=== PATIENT | female | born 1965 | race Caucasian/White ===

== ENCOUNTER 2016-08-24 12:03 | Emergency (ER) | payer OTHER ==
[~2016-08-24] VITALS: Ht 165.1 cm; Wt 123.0 kg
[2016-08-24 12:10] VITALS: TEMP 36.7; Ht 165.1 cm; Wt 123.0 kg
[2016-08-24] MEDS ORDERED: TRAM-10 PO (12:17)
[2016-08-24] MEDS ORDERED: SODIUM CHLORIDE 0.9% 500ML 500 ML IV STA (12:49)
[2016-08-24] MEDS ORDERED: MoRPHine SULFATE 10 MG/ML CARP/VIAL IV STA (12:49)
[2016-08-24] MEDS ORDERED: LORAZEPAM 2 MG/ML 1 ML VIAL IV STA (12:49)
[2016-08-24] MEDS ORDERED: ONDANSETRON INJ 2 MG/ML 2 ML VIAL IV STA (12:49)
[2016-08-24 13:31] LABS: COMPLETE YES; EOS % 0.2 %; HEMATOCRIT 42.1 % (37-47); LYMPH % 49.6 %; LYMPH ABS # 2.64 K/uL (1.2-3.4); MEAN CELL VOLUME 89.4 fL (80-100); MEAN CORPUSCULAR HEMOGLOBIN 30.1 pg (25-34); MEAN CORPUSCULAR HGB CONC 33.7 g/dl (32-36); MEAN PLATELET VOLUME 12.4 fL (7.4-10.4); MONO % 9.6 %; NEUT % 40.6 %; PLATELET COUNT 184 K/uL (130-400); RED BLOOD COUNT 4.71 M/uL (4.2-5.4); WHITE BLOOD COUNT 5.32 K/uL (4.8-10.8)
[2016-08-24 13:44] LABS: BUN/CREATININE RATIO 15.2 (10-20); CALCIUM 8.8 mg/dl (8.5-10.1); CREATININE 0.77 mg/dl (0.60-1.20); POTASSIUM 4.4 mmol/L (3.5-5.1)
--- NOTE | 2016-08-24 13:59 | DIAGNOSTIC IMAGING REPORT ---
RIGHT TIBIA AND FIBULA 2 VIEWS CLINICAL HISTORY: Right leg injury. FINDINGS: AP and lateral views of the right tibia and fibula are obtained. No prior studies are available for comparison at the time of dictation. The skeletal structures are well mineralized. No fracture is seen. The knee and ankle joints are grossly maintained. Soft tissue edema is present in the calf. IMPRESSION: Soft tissue swelling with no radiographic evidence of right tibial or fibular fracture. Electronically signed by: Maximo Montesinos M.D. 08/24/2016 1:57 PM Dictated Date/Time: 08/24/2016 1:56 PM
--- NOTE | 2016-08-24 14:00 | DIAGNOSTIC IMAGING REPORT ---
LEFT TIBIA AND FIBULA 2 VIEWS CLINICAL HISTORY: Left leg injury. FINDINGS: AP and lateral views of the left tibia and fibula are obtained. No prior studies are available for comparison at the time of dictation. The skeletal structures are well mineralized. No fracture is seen. The knee and ankle joints are grossly maintained. Soft tissue edema is present in the left calf. IMPRESSION: Soft tissue swelling with no radiographic evidence of left tibial or fibular fracture. Electronically signed by: Maximo Montesinos M.D. 08/24/2016 1:58 PM Dictated Date/Time: 08/24/2016 1:57 PM
--- NOTE | 2016-08-24 14:05 | DIAGNOSTIC IMAGING REPORT ---
RIGHT KNEE 3 VIEWS CLINICAL HISTORY: Right knee injury. FINDINGS: AP, crosstable lateral, and sunrise views of the right knee are obtained. No prior studies are available for comparison at the time of dictation. The skeletal structures are well mineralized. No fracture is seen. There is mild degenerative narrowing in the medial and patellofemoral compartments. There are medial and lateral marginal osteophytes. No joint effusion is seen. Mild soft tissue swelling is present around the knee. IMPRESSION: Mild degenerative change and soft tissue swelling as above with no fracture identified. Electronically signed by: Maximo Montesinos M.D. 08/24/2016 2:03 PM Dictated Date/Time: 08/24/2016 2:02 PM
--- NOTE | 2016-08-24 14:08 | DIAGNOSTIC IMAGING REPORT ---
LEFT KNEE 3 VIEWS CLINICAL HISTORY: Left knee injury. FINDINGS: AP, crosstable lateral, and sunrise views of the left knee are obtained. No prior studies are available for comparison at the time of dictation. The skeletal structures are well mineralized. No fracture is seen. There is mild degenerative narrowing at the patellofemoral articulation. There are medial and lateral marginal osteophytes as well as small patellar enthesophytes. No joint effusion is seen. Mild soft tissue swelling is present around the knee. IMPRESSION: Mild degenerative change and soft tissue swelling as above with no left knee fracture identified. Electronically signed by: Maximo Montesinos M.D. 08/24/2016 2:06 PM Dictated Date/Time: 08/24/2016 2:05 PM
--- NOTE | 2016-08-24 14:11 | DIAGNOSTIC IMAGING REPORT ---
LEFT FOOT 3 VIEWS CLINICAL HISTORY: Fall with left leg injury. FINDINGS: 3 views of left foot are obtained. No prior studies are available for comparison at the time of dictation. The skeletal structures are well mineralized. No fracture is identified. The joint spaces of the foot appear maintained. A tiny exostosis arises from the medial aspect of the fifth proximal phalanx. An os naviculari is incidentally noted. A chronic appearing avulsion injury is noted from the inferior aspect of the lateral malleolus. There is a tiny plantar calcaneal enthesophyte. Mild soft tissue swelling is present around ankle. IMPRESSION: Mild soft tissue swelling with no acute bony abnormality identified. Electronically signed by: Maximo Montesinos M.D. 08/24/2016 2:08 PM Dictated Date/Time: 08/24/2016 2:07 PM
--- NOTE | 2016-08-24 14:12 | DIAGNOSTIC IMAGING REPORT ---
LEFT ANKLE 3 VIEWS CLINICAL HISTORY: Left leg pain. Injury. FINDINGS: 3 views of left ankle are correlated with radiograph of left tibia and fibula performed concurrently on 08/24/2016. The skeletal structures are well mineralized. No fracture is seen. The ankle mortise is intact. A well-corticated and chronic appearing avulsion injury is noted inferior to lateral malleolus. This a plantar calcaneal enthesophyte is observed. No joint effusion is identified. Soft tissue edema is present in the calf. IMPRESSION: Soft tissue swelling with no radiographic evidence of acute left ankle fracture. Electronically signed by: Maximo Montesinos M.D. 08/24/2016 2:10 PM Dictated Date/Time: 08/24/2016 2:09 PM
[2016-08-24] MEDS ORDERED: OPTIRAY 320 IV PRN (15:00)
--- NOTE | 2016-08-24 15:15 | DIAGNOSTIC IMAGING REPORT ---
CT SCAN OF THE ABDOMEN AND PELVIS WITH IV CONTRAST CLINICAL HISTORY: Trauma. Fall. COMPARISON STUDY: No priors. TECHNIQUE: Following the IV administration of 115 cc of Optiray 320, CT scan of the abdomen and pelvis is performed from the lung bases to the proximal femora. Images are reviewed in the axial, sagittal, and coronal planes. IV contrast was administered without complication. Automated dose control exposure was utilized. The examination is degraded by large body habitus, and by streak artifact from the body wall abutting the CT gantry. CT DOSE: 1514.03 mGy.cm FINDINGS: Lung bases: The heart is normal in size and without pericardial effusion. There is dependent atelectasis. No airspace consolidation or pleural effusion is identified. There are numerous tiny pulmonary nodules present at both lung bases. A 4 mm pleural-based nodule is seen in the left lower lobe on image #66. 3 mm left lower lobe pulmonary nodules are seen on images #92, #29, and #42. A 3 mm right middle lobe pulmonary nodule is seen on image #10. 3 mm right lower lobe nodule is seen on image #35. A calcified granuloma is present the right lung base. Liver: The contrast-enhanced liver is enlarged, measuring 20.2 cm in length. Liver is normal in contour and attenuation. There is central intrahepatic biliary ductal dilatation. The hepatic veins and portal veins are patent. Gallbladder: Surgically absent noting clips in the gallbladder fossa. Spleen: Normal in size and attenuation. A loculated cystic lesion in the medial spleen measures up to 3.8 cm as seen on image #115. Pancreas: Moderately atrophic, advanced for age. Adrenal glands: Unremarkable. Kidneys: The contrast enhanced kidneys demonstrate cortical atrophy and are without hydronephrosis. The kidneys enhance symmetrically. Abdominal vasculature: The abdominal aorta is normal in course and caliber noting mild atherosclerotic calcification. Stomach and bowel: There is a small hiatal hernia. There are postoperative changes consistent with a Bebeto-en-Y gastric bypass surgery. No bowel obstruction is seen. There is mild to moderate colonic diverticulosis without CT evidence of acute diverticulitis. The appendix is well-visualized and normal. Peritoneum: There is no intraperitoneal free air or abdominal ascites. There is laxity of the ventral abdominal wall with evidence of previous ventral hernia repair. Lymphadenopathy: None. Pelvic viscera: The bladder, uterus, and adnexa are normal as visualized. Follicles are present in the left ovary. There are numerous pelvic phleboliths. Skeletal structures: The skeletal structures appear osteopenic. There is mild lumbosacral spondylosis and scoliosis. No fracture is identified. No lytic or blastic lesions are seen. IMPRESSION: 1. There is no evidence of solid organ injury in the abdomen or pelvis. 2. No fracture is identified. 3. There are postoperative changes consistent with a Bebeto-en-Y gastric bypass surgery. No bowel obstruction is identified. 4. Hepatomegaly. 5. Mild to moderate colonic diverticulosis without CT evidence of acute diverticulitis. 6. There is a 3.8 cm septated cystic lesion in the medial spleen. This is pathologically indeterminant but statistically almost certainly benign. A six-month follow-up ultrasound of the spleen could be considered for reassessment. 7. Additional findings as above. Electronically signed by: Maximo Montesinos M.D. 08/24/2016 3:13 PM Dictated Date/Time: 08/24/2016 3:04 PM
--- NOTE | 2016-08-24 16:24 | EMERGENCY ROOM VISIT NOTE ---
History First contact with patient: 12:43 Chief Complaint: FALL Stated Complaint: KNEES AND ANKLES FROM A FALL DOWN STEPS History of Present Illness The patient is a 51 year old female who presents to the Emergency Room with complaints of injuries after falling down 15 steps 2 days ago. The patient was walking out of her apartment when she misnegotiated a step and fell face first down the steps. The patient reports landing on her knees, and complains of bilateral knee and leg pain. She also complains of left foot and left fifth toe pain. The patient also reports that she has been having worsening abdominal discomfort over the past 24 hours. She has a history of abdominal reconstruction status post hernia mesh repair and resolving MRSA infection. Her abdominal reconstruction was performed by Dr. Chavarria at the [facility]. She still has an upper central abdominal wall hernia that they are hoping will not worsen. The patient rates her discomfort a 4 out of 10. She reports being very anxious, and is requesting something for anxiety as well. She denies any head injury, neck pain or back pain. She also denies any chest pain or shortness of breath. Review of Systems 10 system review was performed and was negative except for pertinent positives and negatives as indicated in history of present illness Past Medical/Surgical History Medical Problems: (1) No significant past medical history Surgical Problems: (1) History of abdominal wall herniorrhaphy (2) History of abdominal wall reconstruction (3) History of gastric bypass (4) History of gastric bypass Family History No significant family history Social History Smoking Status: Current Every Day Smoker Alcohol Use: none Marital Status: Occupation Status: unemployed Current/Historical Medications Scheduled Gabapentin (Gabapentin), 1,200 MG PO TID Oxycodone Hcl (Oxycodone Hcl), 20 MG PO TID Scheduled PRN Tramadol (Ultram), 50 MG PO Q8H PRN for Pain Allergies Coded Allergies: No Known Allergies (Unverified , 08/24/16) Physical Exam Vital Signs Date Time Temp Pulse Resp B/P Pulse Ox O2 Delivery O2 Flow Rate FiO2 08/24/16 12:10 36.7 90 18 139/92 98 Room Air Physical Exam CONSTITUTIONAL: Morbidly obese female, alert and oriented X 3 with positive affect. Patient appears in mild discomfort from pain. HEENT: Normocephalic, atraumatic. Pupils equal, round and reactive. No epistaxis, subconjunctival hemorrhage, hemotympanum, raccoon's eyes or Paul sign. NECK: Full active range of motion without discomfort. RESPIRATORY: Clear to auscultation bilaterally with no wheezing, crackles, rhonchi or stridor. CARDIOVASCULAR: Regular rate and rhythm with no murmurs, rubs or gallops. GASTROINTESTINAL: Bowel sounds present in all quadrants. Examination does not show any abdominal wall ecchymosis, abrasions or lacerations. She has a well- healed vertical central abdominal wall surgical incision. No palpable herniations noted. The patient has generalized abdominal tenderness to palpation. No abdominal rigidity, guarding or rebound. No obvious hepatosplenomegaly. MUSCULOSKELETAL: Full range of motion of all joints without discomfort. Examination shows diffuse tenderness to palpation of bilateral lower extremities from the knees to the feet. Negative logroll. Negative straight leg raise. No focal tenderness through the central thoracolumbar spine or ribs. She has full range of motion of the upper extremities without discomfort. Distal pulses are intact. INTEGUMENTARY: No rash or other significant dermatologic conditions noted. NEUROLOGIC: Upper and lower extremities are sensory intact. Medical Decision & Procedures ER Provider Diagnostic Interpretation: My interpretation of multiple bilateral lower extremity x-rays does not show any acute fractures or dislocations. I refer the reader to the radiologist reports, which also reports normal readings.. CT of the abdomen and pelvis with IV contrast does not show any solid organ injury or other acute findings within the abdomen. Radiologist report is as follows: CT SCAN OF THE ABDOMEN AND PELVIS WITH IV CONTRAST CLINICAL HISTORY: Trauma. Fall. COMPARISON STUDY: No priors. TECHNIQUE: Following the IV administration of 115 cc of Optiray 320, CT scan of the abdomen and pelvis is performed from the lung bases to the proximal femora. Images are reviewed in the axial, sagittal, and coronal planes. IV contrast was administered without complication. Automated dose control exposure was utilized. The examination is degraded by large body habitus, and by streak artifact from the body wall abutting the CT gantry. CT DOSE: 1514.03 mGy.cm FINDINGS: Lung bases: The heart is normal in size and without pericardial effusion. There is dependent atelectasis. No airspace consolidation or pleural effusion is identified. There are numerous tiny pulmonary nodules present at both lung bases. A 4 mm pleural-based nodule is seen in the left lower lobe on image #66. 3 mm left lower lobe pulmonary nodules are seen on images #92, #29, and #42. A 3 mm right middle lobe pulmonary nodule is seen on image #10. 3 mm right lower lobe nodule is seen on image #35. A calcified granuloma is present the right lung base. Liver: The contrast-enhanced liver is enlarged, measuring 20.2 cm in length. Liver is normal in contour and attenuation. There is central intrahepatic biliary ductal dilatation. The hepatic veins and portal veins are patent. Gallbladder: Surgically absent noting clips in the gallbladder fossa. Spleen: Normal in size and attenuation. A loculated cystic lesion in the medial spleen measures up to 3.8 cm as seen on image #115. Pancreas: Moderately atrophic, advanced for age. Adrenal glands: Unremarkable. Kidneys: The contrast enhanced kidneys demonstrate cortical atrophy and are without hydronephrosis. The kidneys enhance symmetrically. Abdominal vasculature: The abdominal aorta is normal in course and caliber noting mild atherosclerotic calcification. Stomach and bowel: There is a small hiatal hernia. There are postoperative changes consistent with a Bebeto-en-Y gastric bypass surgery. No bowel obstruction is seen. There is mild to moderate colonic diverticulosis without CT evidence of acute diverticulitis. The appendix is well-visualized and normal. Peritoneum: There is no intraperitoneal free air or abdominal ascites. There is laxity of the ventral abdominal wall with evidence of previous ventral hernia repair. Lymphadenopathy: None. Pelvic viscera: The bladder, uterus, and adnexa are normal as visualized. Follicles are present in the left ovary. There are numerous pelvic phleboliths. Skeletal structures: The skeletal structures appear osteopenic. There is mild lumbosacral spondylosis and scoliosis. No fracture is identified. No lytic or blastic lesions are seen. IMPRESSION: 1. There is no evidence of solid organ injury in the abdomen or pelvis. 2. No fracture is identified. 3. There are postoperative changes consistent with a Bebeto-en-Y gastric bypass surgery. No bowel obstruction is identified. 4. Hepatomegaly. 5. Mild to moderate colonic diverticulosis without CT evidence of acute diverticulitis. 6. There is a 3.8 cm septated cystic lesion in the medial spleen. This is pathologically indeterminant but statistically almost certainly benign. A six-month follow-up ultrasound of the spleen could be considered for reassessment. 7. Additional findings as above. Laboratory Results 08/24/16 13:13 Red Blood Count 4.71, Mean Corpuscular Volume 89.4, Mean Corpuscular Hemoglobin 30.1, Mean Corpuscular Hemoglobin Concent 33.7, Mean Platelet Volume 12.4, Neutrophils (%) (Auto) 40.6, Lymphocytes (%) (Auto) 49.6, Monocytes (%) (Auto) 9.6, Eosinophils (%) (Auto) 0.2, Basophils (%) (Auto) 0.0, Neutrophils # (Auto) 2.16, Lymphocytes # (Auto) 2.64, Monocytes # (Auto) 0.51, Eosinophils # (Auto) 0.01, Basophils # (Auto) 0.00 08/24/16 13:13 Test 08/24/16 13:13 White Blood Count 5.32 K/uL (4.8-10.8) Red Blood Count 4.71 M/uL (4.2-5.4) Hemoglobin 14.2 g/dL (12.0-16.0) Hematocrit 42.1 % (37-47) Mean Corpuscular Volume 89.4 fL (80-100) Mean Corpuscular Hemoglobin 30.1 pg (25-34) Mean Corpuscular Hemoglobin Concent 33.7 g/dl (32-36) Platelet Count 184 K/uL (130-400) Mean Platelet Volume 12.4 fL (7.4-10.4) Neutrophils (%) (Auto) 40.6 % Lymphocytes (%) (Auto) 49.6 % Monocytes (%) (Auto) 9.6 % Eosinophils (%) (Auto) 0.2 % Basophils (%) (Auto) 0.0 % Neutrophils # (Auto) 2.16 K/uL (1.4-6.5) Lymphocytes # (Auto) 2.64 K/uL (1.2-3.4) Monocytes # (Auto) 0.51 K/uL (0.11-0.59) Eosinophils # (Auto) 0.01 K/uL (0-0.5) Basophils # (Auto) 0.00 K/uL (0-0.2) RDW Standard Deviation 48.7 fL (36.4-46.3) RDW Coefficient of Variation 14.9 % (11.5-14.5) Immature Granulocyte % (Auto) 0.0 % Immature Granulocyte # (Auto) 0.00 K/uL (0.00-0.02) Anion Gap 6.0 mmol/L (3-11) Est Creatinine Clear Calc Drug Dose 113.8 ml/min Estimated GFR () 103.6 Estimated GFR (Non- 89.4 BUN/Creatinine Ratio 15.2 (10-20) Calcium Level 8.8 mg/dl (8.5-10.1) Medications Administered Medications (Trade) Dose Ordered Sig/Tayo Route Start Time Stop Time Status Last Admin Dose Admin Sodium Chloride (Nss 500ml) 500 ml @ 999 mls/hr Q31M STAT IV 08/24/16 12:49 08/24/16 13:19 DC 08/24/16 13:15 999 MLS/HR Morphine Sulfate (MoRPHine SULFATE INJ) 10 mg NOW STAT IV 08/24/16 12:49 08/24/16 12:54 DC 08/24/16 13:15 10 MG Ondansetron HCl (Zofran Inj) 4 mg NOW STAT IV 08/24/16 12:49 08/24/16 12:54 DC 08/24/16 13:15 4 MG Lorazepam (Ativan Inj) 1 mg NOW STAT IV 08/24/16 12:49 08/24/16 12:54 DC 08/24/16 13:15 1 MG ED Course Patient history and physical exam were performed. Nurse's notes were reviewed. Vital signs were reviewed and normal. Because of concern for possible intra- abdominal trauma, IV access was established, and labs were drawn. The patient was administered IV morphine and Zofran for pain, along with Ativan IVP at the patient's request. Labs were reviewed and were normal. The patient was unable to provide a urine sample while in the emergency department. CT of the abdomen and pelvis with IV contrast was normal. The patient had multiple x-rays of bilateral lower extremities which were also normal. Radiographic findings were discussed with the patient. The patient was dispensed a walker to help with ambulation. She was encouraged to intermittently apply ice to areas of discomfort. She was instructed to continue with her home pain medications as prescribed by her pain clinic. Review of the [place] Prescription Drug Monitoring Program shows that she is currently receiving regular prescriptions from a pain clinic in [place]. She was instructed to contact her general surgeon as needed for any persistent or progressively worsening abdominal pain. The patient voiced understanding of all discharge instructions, was happy with plan care, and rated her pain a 4 out of 10 at the time of discharge. [place] Drug Monitoring Program Search Results: patient reviewed within database, see additional documentation Impression Primary Impression: Abdominal wall contusion Additional Impressions: Fall down steps Bilateral lower extremity contusions Departure Information Referrals Lizzy Marin MD (PCP) Patient Instructions My [facility] Problem Qualifiers Additional Impressions: Fall down steps Encounter type: initial encounter Qualified Codes: W10.8XXA - Fall (on) ( from) other stairs and steps, initial encounter
[2016-08-24 16:35] VITALS: BP 158/96; PULSE 78; O2SAT 96
[2016-12-01] MEDS ORDERED: NRN600 PO (12:17)
[2016-12-01] MEDS ORDERED: OXYC20TA32 PO (12:17)
[2016-12-01] MEDS ORDERED: ABL/5 PO (13:21)
[2016-12-01] MEDS ORDERED: EFF75 PO (13:22)
[2016-12-01] MEDS ORDERED: VENL150C56 PO (13:22)
== END 2016-08-24 16:37 | disposition home or self-care (01) ==
LOC: C.EDB 12:06 → C.EDD 16:37
DX: S80.01XA Contusion of right knee, initial encounter (principal); S80.02XA Contusion of left knee, initial encounter; S30.1XXA Contusion of abdominal wall, initial encounter; W10.8XXA Fall (on) (from) other stairs and steps, initial encounter; F17.200 Nicotine dependence, unspecified, uncomplicated; Z98.84 Bariatric surgery status; Z79.899 Other long term (current) drug therapy

== ENCOUNTER 2016-10-06 13:07 | Emergency (ER) | payer OTHER ==
[~2016-10-06] VITALS: Ht 165.1 cm; Wt 129.8 kg
[~2016-10-06 13:07] MED LIST: TRAM-10 PO
[2016-10-06 13:11] VITALS: TEMP 36.9; Ht 165.1 cm; Wt 129.8 kg
[2016-10-06] MEDS ORDERED: PERMETHRIN 5% CR 60 GM TUBE EXT STA (13:21)
[2016-10-06] MEDS ORDERED: PRED50TA PO (14:39)
--- NOTE | 2016-10-06 14:41 | EMERGENCY ROOM VISIT NOTE ---
History First contact with patient: 13:11 Chief Complaint: RASH Stated Complaint: HIVES History of Present Illness The patient is a 51 year old female who presents to the Emergency Room via ambulance with complaints of "hives". The patient states that last night she started itching all over her body, specifically it was worse between her digits in between her toes. She states that she went to bed and did not notice any bite thomas or redness. She states that she woke up this morning around 10:30 AM and noticed these red blotches all over her skin. She also notes that she visited someone yesterday in [place] that did not have a very clean home. She states that she thought she may have had a little bit of shortness of breath earlier today, therefore called the ambulance over concern for anaphylaxis. She denies any throat swelling, chest pain, allergies. It is important to note that upon presentation there was no chest pain or shortness of breath. Review of Systems A complete 10-point Review of Systems was discussed with the patient, with pertinent positives and negatives listed in the History of Present Illness. All remaining Review of Systems questions can be considered negative unless otherwise specified. Past Medical/Surgical History Medical Problems: (1) Diverticulosis (2) No significant past medical history Surgical Problems: (1) History of abdominal wall herniorrhaphy (2) History of abdominal wall reconstruction (3) History of cholecystectomy (4) History of gastric bypass (5) History of gastric bypass Family History No significant family history Social History Smoking Status: Current Every Day Smoker Alcohol Use: none Marital Status: Occupation Status: unemployed Current/Historical Medications Scheduled Aripiprazole (Abilify), 5 MG PO DAILY Gabapentin (Gabapentin), 1,200 MG PO TID Oxycodone Hcl (Oxycodone Hcl), 20 MG PO TID Prednisone (Prednisone), 50 MG PO DAILY Venlafaxine Hcl (Effexor), 75 MG PO DAILY Venlafaxine Hcl (Effexor Extended Rel), 150 MG PO DAILY Scheduled PRN Tramadol (Ultram), 50 MG PO Q8H PRN for Pain Allergies Coded Allergies: No Known Allergies (Unverified , 10/06/16) Physical Exam Vital Signs Date Time Temp Pulse Resp B/P Pulse Ox O2 Delivery O2 Flow Rate FiO2 10/06/16 15:49 97 18 149/103 97 10/06/16 13:11 36.9 82 18 144/85 95 Room Air Physical Exam VITAL SIGNS - Vital signs and nursing notes were reviewed. Vital signs stable. GENERAL -51-year-old female appearing her stated age who is in no acute distress. Communicates well with provider and answers questions appropriately. SKIN - there is a raised urticarial-like rash over the upper and lower extremities. There is also some of the waistline. There is a small [facility] to each of these. This is concerning for scabies, fleas or bedbugs. MOUTH/OROPHARYNX - Without perioral cyanosis. Airways patent. No evidence of anaphylaxis. LUNGS - Chest wall symmetric without accessory muscle use, intercostals retractions, or central cyanosis. Normal vesicular breath sounds CTA B/L. No wheezes, rales, or rhonchi appreciated. CARDIAC - RRR with S1/S2. No murmur, rubs, or gallops appreciated. Medical Decision & Procedures Medications Administered Medications (Trade) Dose Ordered Sig/Tayo Route Start Time Stop Time Status Last Admin Dose Admin Permethrin (Elimite 5% Crm) 1 appln NOW STAT EXT 10/06/16 13:21 10/06/16 13:22 DC 10/06/16 13:48 1 APPLN Prednisone (PredniSONE TAB) 50 mg NOW STAT PO 10/06/16 13:21 10/06/16 13:22 DC 10/06/16 13:48 50 MG Diphenhydramine HCl (Benadryl Cap) 50 mg NOW STAT PO 10/06/16 13:21 10/06/16 13:22 DC 10/06/16 13:48 50 MG Medical Decision Patient was seen and evaluated as above. She presents today with what appears to be a reaction to bites better either from fleas, bed bugs or scabies. It is likely that this may be scabies that she recently was to see someone who had similar bites on their body and not a very clean home. Her vital signs are stable, and there are no other symptoms other than itching and the bite thomas. She be prescribed permethrin, and here for symptomatically treatment she'll be given prednisone as well as Benadryl. She was instructed to use a permethrin, the Benadryl from the store and have a short-term prescription of prednisone for her at home. At this time I believe she should be monitored. She was monitored for well over one hour with slight improvement of her symptoms. There were no worsening or evidence of anaphylaxis. She is to follow-up with her family doctor regarding today's visit. She was also seen by my attending. The patient was educated upon management today symptoms, educated upon worrisome symptoms in which to return, had questions prior to discharge and was discharged home in good condition. In evaluation treatment this patient following differential diagnoses were entertained: Scabies, fleas, anaphylaxis, among others. Impression Primary Impression: Bites Departure Information Dispostion Home / Self-Care Condition GOOD Prescriptions Prednisone (Prednisone) 50 Mg Tab 50 MG PO DAILY for 4 Days, #4 TAB Prov: Ed Preciado PA-C 10/06/16 Referrals Lizzy Marin MD (PCP) Patient Instructions My [facility] Additional Instructions You were seen in the emergency Department for a reaction to suspected bites. It is possible this is either scabies, fleas or bedbugs. Your recent exposure and [place] is concerning for this. If this is scabies, the cream you were provided Topical: Cream 5%: Thoroughly massage cream (30 g for average adult) from head to soles of feet; leave on for 8 to 14 hours before removing (shower or bath); for infants and the elderly, also apply on the hairline, neck, scalp, lutheran, and forehead; may repeat if living mites are observed 14 days after first treatment; one application is generally curative. For the itching and is recommended that he use [id number] Benadryl according to package instructions. You have also prescribed prednisone, to be taken once daily for the next 4 days. Please pick this up at the pharmacy and begin this tomorrow. If this is fleas or bedbugs, it is recommended that you thoroughly inspect the items that you talk with you on your recent trip, also wear white socks and look for small little black bugs the may be jumping or crawling. If you do happen to identify these, you will need to higher an housing assistant. It is recommended that you follow-up with her family doctor regarding today's visit, by calling their office first thing tomorrow morning to schedule follow-up. Please return to the emergency department with any new/concerning symptoms.
[2016-10-06 15:49] VITALS: BP 149/103; PULSE 97; O2SAT 97
[2016-12-01] MEDS ORDERED: OXYC20TA32 PO (12:17)
[2016-12-01] MEDS ORDERED: NRN600 PO (12:17)
[2016-12-01] MEDS ORDERED: ABL/5 PO (13:21)
[2016-12-01] MEDS ORDERED: VENL150C56 PO (13:22)
[2016-12-01] MEDS ORDERED: EFF75 PO (13:22)
== END 2016-10-06 15:50 | disposition home or self-care (01) ==
LOC: EDBD 13:07 → C.EDC 13:08
DX: S40.861A Insect bite (nonvenomous) of right upper arm, initial encounter (principal); S40.862A Insect bite (nonvenomous) of left upper arm, initial encounter; S80.861A Insect bite (nonvenomous), right lower leg, initial encounter; S80.862A Insect bite (nonvenomous), left lower leg, initial encounter; W57.XXXA Bitten or stung by nonvenomous insect and other nonvenomous arthropods, initial encounter; F17.200 Nicotine dependence, unspecified, uncomplicated; Z98.890 Other specified postprocedural states; Z90.49 Acquired absence of other specified parts of digestive tract; Z98.84 Bariatric surgery status; Z79.52 Long term (current) use of systemic steroids

== ENCOUNTER 2016-10-29 21:56 | Emergency (ER) | payer OTHER ==
[~2016-10-29] VITALS: Ht 165.1 cm; Wt 122.0 kg
[2016-10-29 22:12] VITALS: TEMP 36.6; Ht 165.1 cm; Wt 122.0 kg
[2016-10-30 00:09] VITALS: BP 123/80; PULSE 99; O2SAT 97
[2016-10-30] MEDS ORDERED: MoRPHine SULFATE 10 MG/ML CARP/VIAL IM STA (00:09)
--- NOTE | 2016-10-30 00:11 | EMERGENCY ROOM VISIT NOTE ---
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 I was involved in the patient's care and did evaluate the patient myself. I was involved in the care throughout the ER stay. The patient complains of left knee pain. She fell onto the knee earlier. I don 't see any fracture on film. I think the area is just badly bruised. She is being discharged home.
--- NOTE | 2016-10-30 00:40 | EMERGENCY ROOM VISIT NOTE ---
ED Visit Note First contact with patient: 22:50 CHIEF COMPLAINT: Knee pain HISTORY OF PRESENT ILLNESS: This 51-year-old female patient presents to the emergency department ambulatory after sustaining an injury to the left knee prior to arrival. The patient states she was at the [facility] when she slipped and fell onto both knees. The patient denies any other injuries besides their knee. She reports severe pain in the left knee. The pain is worse with weightbearing or palpating the knee. She rates her discomfort a 7/10. She also reports some bruising of the left thigh. No numbness or tingling. No ankle, foot or hip pain. The patient does state that she fell onto her knee a few months ago, but had no fractures at that time. REVIEW OF SYSTEMS: A 6 system review of systems was completed with positives and pertinent negatives listed in the HPI. ALLERGIES: No known drug allergies MEDICATIONS: See med list PMH: No significant past medical history. SOCIAL HISTORY: The patient lives locally with family. She is a smoker. PHYSICAL EXAM: Vital Signs: Reviewed Nurse's notes, vital signs stable. GENERAL : This is a 51-year-old female, no acute distress, but appears in pain, well- developed, well-nourished. MENTAL STATUS: Alert, oriented to person place and time, and cooperative. MUSCULOSKELETAL: There is an abrasion over the anterior left knee. There is ecchymosis over the medial left thigh. The left knee is mildly swollen. The patient is tender over the anterior knee. There is mild tenderness over the proximal fibula. There is no joint line tenderness. The patella does not subluxate. Range of motion is full. Ligamentous exam is limited due to patient body habitus. The foot and toes are warm and well-perfused. Dorsalis pedis pulse 2+. Sensation to pain and light touch is intact. Capillary refill less than 2 seconds. RADIOGRAPHIC FINDINGS: Left knee: No obvious fractures or dislocations noted. No significant effusion. Left tibia/fibula: No fractures. EMERGENCY DEPARTMENT COURSE: I examined the patient. She was given 10 mg morphine IM for pain. X-rays of the left knee and tibia/fibula were reviewed by myself and Dr. Mcleod and reveal no obvious fractures. The patient was placed in an kayce wrap. She has both a walker and crutches at home. She was instructed to follow-up with her primary care provider or orthopedics as needed. The patient was discharged home in good condition. Medication reconciliation: I attest that I have personally reviewed the patient 's current medication list. Blood pressure screening: Patient was found to have normal blood pressure on screening and does not require follow-up. DIAGNOSIS: Left knee contusion Current/Historical Medications Scheduled Aripiprazole (Abilify), 5 MG PO DAILY Gabapentin (Gabapentin), 1,200 MG PO TID Oxycodone Hcl (Oxycodone Hcl), 20 MG PO TID Venlafaxine Hcl (Effexor), 75 MG PO DAILY Venlafaxine Hcl (Effexor Extended Rel), 150 MG PO DAILY Scheduled PRN Tramadol (Ultram), 50 MG PO Q8H PRN for Pain Allergies Coded Allergies: No Known Allergies (Unverified , 10/06/16) Vital Signs Date Time Temp Pulse Resp B/P (MAP) Pulse Ox O2 Delivery O2 Flow Rate FiO2 10/30/16 00:09 99 18 123/80 97 Room Air 10/29/16 22:12 36.6 105 18 122/80 99 Room Air Medications Administered Medications (Trade) Dose Ordered Sig/Tayo Route Start Time Stop Time Status Last Admin Dose Admin Morphine Sulfate (MoRPHine SULFATE INJ) 10 mg NOW STAT IM 10/30/16 00:09 10/30/16 00:10 DC 10/30/16 00:21 10 MG Departure Information Impression Primary Impression: Contusion of knee Dispostion Home / Self-Care Condition GOOD Referrals Lizzy Marin MD (PCP) Patient Instructions My [facility] Additional Instructions You have been treated in the Emergency Department for Knee Pain. You have received pain medicine in the emergency department which impairs your ability to operate a vehicle. It is illegal for you to drive after receiving these medicines. For pain control, you can use the following [id number] medicines (if >12 yo): - Regular strength (325mg/tab) Tylenol (acetaminophen) 2 tabs every 4-6 hours as needed. Do not exceed 12 tablets in a 24 hour period. Avoid taking more than 4 grams (4000 mg) of Tylenol per day. This includes any other sources of acetaminophen you may take on a regular basis. - Regular strength (200 mg/tab) Advil (ibuprofen) 1-2 tabs every 4-6 hours as needed. Do not exceed a dose of 3200 mg per day. If this is a recent injury (<24 hrs), ice can be applied to the area of pain for the first 3 days to help decrease pain and inflammation. Ice massages can be performed by freezing water in a paper cup, peeling back the cup to expose the ice and then massaging over the affected area. You have been provided the number for an Orthopaedic Surgeon. You should follow -up with them if you have persistent or worsening pain in the knee. Keep the knee brace in place until cleared by Orthopedics. Use your walker or crutches to keep ALL weight off of the knee until weight bearing is tolerable. Return to the Emergency Department if your current symptoms worsen despite treatment course outlined above.
--- NOTE | 2016-10-30 07:53 | DIAGNOSTIC IMAGING REPORT ---
LEFT KNEE 3 VIEWS, LEFT TIBIA/FIBULA 2 VIEWS ROUTINE CLINICAL HISTORY: left knee pain/injury. Left lower leg pain. COMPARISON STUDY: Left knee 08/24/2016. FINDINGS: Mild tricompartmental osteoarthritis within the left knee. No fracture or dislocation within the left knee or left lower leg. Diffuse soft tissue swelling within the knee. No significant knee effusion. There is also diffuse soft tissue swelling within the lower leg. IMPRESSION: Diffuse soft tissue swelling within the left knee and lower leg. No fracture or dislocation. Electronically signed by: Guru Mendoza M.D. 10/30/2016 7:51 AM Dictated Date/Time: 10/30/2016 7:49 AM
[2016-10-31] MEDS ORDERED: OXYC1TAB3 PO (22:32)
[2016-12-01] MEDS ORDERED: NRN600 PO (12:17)
[2016-12-01] MEDS ORDERED: OXYC20TA32 PO (12:17)
[2016-12-01] MEDS ORDERED: ABL/5 PO (13:21)
[2016-12-01] MEDS ORDERED: EFF75 PO (13:22)
[2016-12-01] MEDS ORDERED: VENL150C56 PO (13:22)
== END 2016-10-30 00:51 | disposition home or self-care (01) ==
LOC: C.EDB 21:57 → C.EDA 10-30 00:51
DX: S80.02XA Contusion of left knee, initial encounter (principal); W01.0XXA Fall on same level from slipping, tripping and stumbling without subsequent striking against object, initial encounter; Y92.831 Amusement park as the place of occurrence of the external cause; F17.210 Nicotine dependence, cigarettes, uncomplicated; Z79.899 Other long term (current) drug therapy

== ENCOUNTER 2016-10-31 19:58 | Emergency (ER) | payer OTHER ==
[~2016-10-31] VITALS: Ht 165.1 cm; Wt 118.0 kg
[2016-10-31 20:05] VITALS: TEMP 37.2; Ht 165.1 cm; Wt 118.0 kg
[2016-10-31] MEDS ORDERED: PROMETHAZINE HCL INJ 25 MG/ML 1 ML VIAL IM STA (21:16)
[2016-10-31] MEDS ORDERED: HYDROmorphone INJ 2 MG/ML SYR/VIAL IM STA (21:16)
[2016-10-31] MEDS ORDERED: KETOROLAC TROMETHAMINE 60 MG/2 ML VIAL IM STA (21:16)
--- NOTE | 2016-10-31 21:17 | EMERGENCY ROOM VISIT NOTE ---
History Report prepared by Alissa: Suzi Painter Under the Supervision of: Dr. Figueroa Torres M.D. First contact with patient: 21:07 Chief Complaint: FALL Stated Complaint: FELL, HURT KNEE, WAS HERE THURSDAY History of Present Illness The patient is a 51 year old female who presents to the Emergency Room with complaints of worsening left leg pain beginning 3 days prior to arrival. The patient was seen in the ED Thursday evening after [place] in the park. She had left leg and knee pain then that was swollen. Since Thursday her leg has begun to swell even more and is painful to touch. She states that she has been using her crutches, elevating the leg and using ice intermittently. The patient has been taking her Oxycodone for the pain which she has due to chronic abdominal pain. She has also tried Advil, Tylenol and Aleve with no relief of the pain. She is currently not on any blood thinners. The patient has an appointment with Orthopedic Surgery on Thursday for follow up. 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 Review of Systems See HPI for pertinent positives & negatives. A total of 10 systems reviewed and were otherwise negative. Past Medical & Surgical Medical Problems: (1) Diverticulosis (2) No significant past medical history Surgical Problems: (1) History of abdominal wall herniorrhaphy (2) History of abdominal wall reconstruction (3) History of cholecystectomy (4) History of gastric bypass (5) History of gastric bypass Family History No significant family history Social History Smoking Status: Current Every Day Smoker Alcohol Use: none Marital Status: Occupation Status: unemployed Current/Historical Medications Scheduled Aripiprazole (Abilify), 5 MG PO DAILY Gabapentin (Gabapentin), 1,200 MG PO TID Oxycodone Hcl (Oxycodone Hcl), 20 MG PO TID Venlafaxine Hcl (Effexor), 75 MG PO DAILY Venlafaxine Hcl (Effexor Extended Rel), 150 MG PO DAILY Scheduled PRN Oxycodone Immediate Rel Tab (Roxicodone Ir), 1-2 TAB PO Q4H PRN for Severe Pain Allergies Coded Allergies: Morphine (Unverified Allergy, Unknown, VOMITING, 10/31/16) Physical Exam Vital Signs Date Time Temp Pulse Resp B/P (MAP) Pulse Ox O2 Delivery O2 Flow Rate FiO2 10/31/16 22:43 84 20 131/83 100 Room Air 10/31/16 21:54 78 20 135/75 95 Room Air 10/31/16 20:05 37.2 88 16 113/82 99 Room Air Physical Exam GENERAL: Patient is a healthy-appearing well-nourished female HEAD: Normocephalic atraumatic EYES: Ocular movements intact pupils equal and react to light OROPHARYNX mucous membranes are moist no exudates present no erythema or edema present NECK: Supple no nuchal rigidity CHEST: Good equal expansion LUNGS: Clear and equal to auscultation CARDIAC: Normal S1 and S2 ABDOMEN: Soft nontender no guarding BACK: No CVA tenderness EXTREMITIES: Left leg has significant amount of bruising. Exquisite tenderness to left knee. Abrasions present. NEURO: Patient is following commands and answering questions appropriately. Alert and oriented x3 Cranial Nerves 2-12 grossly intact Medical Decision & Procedures ER Provider Diagnostic Interpretation: CT OF THE LEFT KNEE CT DOSE: 591.56 mGy.cm HISTORY: Pain pt c/o left knee pain TECHNIQUE: Multiaxial CT images of the left knee were performed and reformatted in the sagittal and coronal plane without the use of contrast. COMPARISON: None. FINDINGS: Moderate degenerative change all major joint compartments. No significant joint effusion. Considerable soft tissue edematous change primarily involving the subcutaneous fat. IMPRESSION: 1. Study is negative for fracture. 2. Moderate degenerative change. 3. Soft tissue edema. Electronically signed by: Bernard Roth M.D. 10/31/2016 10:03 PM Dictated Date/Time: 10/31/2016 10:00 PM Medications Administered Medications (Trade) Dose Ordered Sig/Tayo Route Start Time Stop Time Status Last Admin Dose Admin Hydromorphone HCl (Dilaudid Inj) 2 mg NOW STAT IM 10/31/16 21:16 10/31/16 21:18 DC 10/31/16 21:16 2 MG Ketorolac Tromethamine (Toradol Inj) 60 mg NOW STAT IM 10/31/16 21:16 10/31/16 21:18 DC 10/31/16 21:16 60 MG Promethazine HCl (Phenergan Inj) 25 mg NOW STAT IM 10/31/16 21:16 10/31/16 21:18 DC 10/31/16 21:16 25 MG Oxycodone HCl (Roxicodone Immediate Rel 5MG [facility] 10/31/16 22:30 10/31/16 22:31 DC 10/31/16 22:44 1 [facility] ED Course 2107: Past medical records reviewed. The patient was evaluated in room C3. A complete history and physical examination was performed. 2115: Phenergan Inj 25 mg IM, Toradol Inj 60 mg IM, Dilaudid Inj 2 mg IM. Medical Decision Differential diagnosis: Etiologies such as fracture, dislocation, neurovascular compromise, compartment syndrome, soft tissue injury, as well as others were entertained. Medication Reconciliation: I attest that I have personally reviewed the patient' s current medication list This is a 51-year-old female who presents emergency department complaining of left knee pain. The patient had x-rays performed here several days ago however the pain has been too intense. The patient reports she has been using her walker and crutches. Based on the patient's complaint she was sent for CAT scan of her knee. This did not show any acute process. She was given Dilaudid as well as Toradol in the emergency department. She was also placed in a knee immobilizer. I recommended the patient keep her knee elevated and [facility] Patient was in agreement with the treatment plan. Impression Primary Impression: Knee pain, left Scribe Attestation The scribe's documentation has been prepared under my direction and personally reviewed by me in its entirety. I confirm that the note above accurately reflects all work, treatment, procedures, and medical decision making performed by me. Departure Information Dispostion Home / Self-Care Prescriptions Oxycodone Immediate Rel Tab (ROXICODONE IR) 5 Mg Tab 1-2 TAB PO Q4H Y for Severe Pain, #14 TAB Prov: Figueroa Torres MD 10/31/16 Referrals No Doctor, Assigned (PCP) Patient Instructions My [facility] Problem Qualifiers Primary Impression: Knee pain, left Chronicity: acute Qualified Codes: M25.562 - Pain in left knee
--- NOTE | 2016-10-31 22:04 | DIAGNOSTIC IMAGING REPORT ---
CT OF THE LEFT KNEE CT DOSE: 591.56 mGy.cm HISTORY: Pain pt c/o left knee pain TECHNIQUE: Multiaxial CT images of the left knee were performed and reformatted in the sagittal and coronal plane without the use of contrast. COMPARISON: None. FINDINGS: Moderate degenerative change all major joint compartments. No significant joint effusion. Considerable soft tissue edematous change primarily involving the subcutaneous fat. IMPRESSION: 1. Study is negative for fracture. 2. Moderate degenerative change. 3. Soft tissue edema. Electronically signed by: Bernard Roth M.D. 10/31/2016 10:03 PM Dictated Date/Time: 10/31/2016 10:00 PM
[2016-10-31] MEDS ORDERED: OXYCODONE IR HOME PACK PO ONE (22:30)
[2016-10-31] MEDS ORDERED: OXYC1TAB3 PO (22:32)
[2016-10-31 22:43] VITALS: BP 131/83; PULSE 84; O2SAT 100
[2016-12-01] MEDS ORDERED: OXYC20TA32 PO (12:17)
[2016-12-01] MEDS ORDERED: NRN600 PO (12:17)
[2016-12-01] MEDS ORDERED: ABL/5 PO (13:21)
[2016-12-01] MEDS ORDERED: EFF75 PO (13:22)
[2016-12-01] MEDS ORDERED: VENL150C56 PO (13:22)
== END 2016-10-31 22:57 | disposition home or self-care (01) ==
LOC: C.EDB 19:59 → C.EDC 22:57
DX: M25.562 Pain in left knee (principal); W19.XXXD Unspecified fall, subsequent encounter; R10.9 Unspecified abdominal pain; G89.29 Other chronic pain; Z90.49 Acquired absence of other specified parts of digestive tract; Z98.84 Bariatric surgery status; F17.210 Nicotine dependence, cigarettes, uncomplicated; Z79.899 Other long term (current) drug therapy

== ENCOUNTER 2016-11-03 10:51 | Emergency (ER) | payer OTHER ==
[~2016-11-03] VITALS: Ht 170.2 cm; Wt 136.2 kg
[~2016-11-03 10:51] MED LIST changes: +OXYC1TAB3 PO; -TRAM-10 PO
[2016-11-03 10:52] VITALS: TEMP 36.4; Ht 170.2 cm; Wt 136.2 kg
[2016-11-03 11:28] VITALS: O2SAT 96
--- NOTE | 2016-11-03 11:34 | DIAGNOSTIC IMAGING REPORT ---
CHEST ONE VIEW PORTABLE CLINICAL HISTORY: EVALUATE RESPIRATORY DISTRESS. DYSPNEA dyspnea COMPARISON STUDY: No previous studies for comparison. FINDINGS: The bones soft tissues and hemidiaphragms are normal. The cardiomediastinal silhouette is normal. The lungs are clear. The pulmonary vasculature is normal. IMPRESSION: Negative chest. Electronically signed by: Bernard Roth M.D. 11/03/2016 11:32 AM Dictated Date/Time: 11/03/2016 11:32 AM
[2016-11-03 11:49] LABS: COMPLETE YES; HEMATOCRIT 36.6 % (37-47); IG% 0.2 %; LYMPH % 29.9 %; LYMPH ABS # 1.53 K/uL (1.2-3.4); MEAN CELL VOLUME 90.1 fL (80-100); MEAN CORPUSCULAR HEMOGLOBIN 29.1 pg (25-34); MEAN CORPUSCULAR HGB CONC 32.2 g/dl (32-36); MEAN PLATELET VOLUME 11.9 fL (7.4-10.4); MONO % 5.9 %; PLATELET COUNT 179 K/uL (130-400); RED BLOOD COUNT 4.06 M/uL (4.2-5.4); WHITE BLOOD COUNT 5.11 K/uL (4.8-10.8)
[2016-11-03 12:00] LABS: INR 0.9 (0.9-1.1); PARTIAL THROMBOPLASTIN RATIO 1.1; PROTHROMBIN TIME (PATIENT) 9.4 SECONDS (9.0-12.0)
[2016-11-03 12:03] LABS: URINE APPEARANCE CLEAR (CLEAR); URINE BILIRUBIN NEG (NEG); URINE COLOR YELLOW; URINE EPITHELIAL CELL AUTO >30 /lpf (0-5); URINE NITRITE NEG (NEG); URINE SPECIFIC GRAVITY 1.008 (1.000-1.030); UROBILINOGEN NEG (NEG)
[2016-11-03 12:09] LABS: MANUAL MICROSCOPIC REQUIRED? NO; REVIEW REQ? NO
[2016-11-03 12:10] LABS: ALT/SGPT 25 U/L (12-78); AST/SGOT 13 U/L (15-37); BLOOD UREA NITROGEN 10 mg/dl (7-18); BUN/CREATININE RATIO 13.7 (10-20); CALCIUM 8.5 mg/dl (8.5-10.1); CARBON DIOXIDE 31 mmol/L (21-32); CHLORIDE 107 mmol/L (98-107); CREATININE 0.75 mg/dl (0.60-1.20); GLUCOSE 89 mg/dl (70-99); POTASSIUM 4.4 mmol/L (3.5-5.1); SODIUM 141 mmol/L (136-145)
[2016-11-03 12:15] LABS: ALKALINE PHOSPHATASE 126 U/L (45-117)
--- NOTE | 2016-11-03 12:18 | DIAGNOSTIC IMAGING REPORT ---
ULTRASOUND BILATERAL LOWER EXTREMITY VENOUS CLINICAL HISTORY: Bilateral lower extremity edema. COMPARISON STUDY: No priors. TECHNIQUE: Real-time, grayscale, and color Doppler sonography of the deep veins of the right and left lower extremity was performed from the inguinal crease to the calf. Compression and augmentation were utilized. FINDINGS: There is no sonographic evidence of deep venous thrombosis identified in the right or left lower extremity. The common femoral, superficial femoral, and popliteal veins are patent and normally compressible bilaterally. The greater saphenous vein and the profunda femoris vein at the junction with the common femoral vein are clear in both legs. The visualized calf veins are patent bilaterally. Subcutaneous fluid is noted within the popliteal fossa on the left. IMPRESSION: There is no sonographic evidence of deep venous thrombosis identified in the right or left lower extremity. Electronically signed by: Maximo Montesinos M.D. 11/03/2016 12:17 PM Dictated Date/Time: 11/03/2016 12:16 PM
--- NOTE | 2016-11-03 12:55 | DIAGNOSTIC IMAGING REPORT ---
LEFT FEMUR 2 VIEWS ROUTINE CLINICAL HISTORY: left femur pain pain COMPARISON: None. DISCUSSION: The bones and joint spaces appear intact. There is no evidence of fracture, dislocation or bony disease. There is no evidence for soft tissue swelling. Moderate degenerative change left hip and left knee. IMPRESSION: Negative study. Moderate degenerative changes left hip and left knee. No acute process. Electronically signed by: Bernard Roth M.D. 11/03/2016 12:54 PM Dictated Date/Time: 11/03/2016 12:53 PM
--- NOTE | 2016-11-03 13:24 | DIAGNOSTIC IMAGING REPORT ---
CHEST CTA for PULMONARY ARTERIES CT DOSE: 669.75 mGy.cm HISTORY: Chest pain dyspnea TECHNIQUE: Multiaxial CT images of the chest were performed following the intravenous administration of contrast to evaluate the pulmonary arteries. Maximal intensity projection images were also obtained. COMPARISON STUDY: None. FINDINGS: There is a normal caliber thoracic aorta with no evidence for dissection. There is no evidence for pulmonary embolus. No pleural effusions. No pneumothorax. The liver and spleen are unremarkable. No mediastinal or hilar lymphadenopathy. The central airways are patent. The lungs are clear. IMPRESSION: No evidence for pulmonary embolus. The lungs are clear. Electronically signed by: Bernard Roth M.D. 11/03/2016 1:23 PM Dictated Date/Time: 11/03/2016 1:20 PM
[2016-11-03] MEDS ORDERED: IBUP-1050 PO (13:25)
[2016-11-03 13:26] VITALS: O2SAT 100
[2016-11-03] MEDS ORDERED: ACETAMINOPHEN 500 MG TAB PO STA (13:29)
[2016-11-03] MEDS ORDERED: OPTIRAY 320 IV PRN (13:30)
[2016-11-03 14:34] VITALS: BP 143/85; PULSE 80
--- NOTE | 2016-11-03 17:33 | EMERGENCY ROOM VISIT NOTE ---
History Report prepared by Alissa: Kaya Bowman Under the Supervision of: Dr. Michel Vasquez D.O. First contact with patient: 11:02 Chief Complaint: SWELLING TO EXTREMITY Stated Complaint: SEVERE LEG SWELLING History of Present Illness The patient is a 51 year old female who presents to the Emergency Room with complaints of worsening bilateral lower extremity edema that started 5 days ago after falling. The patient states that she slipped and [facility] [place] [facility] days [facility]. She states that she landed on her knees but caught herself with her hands. She did not hit her head and she denies any pain in her hands. The patient states that her left knee got hit harder than her right. The patient first started experiencing edema and pain in her left ankle. She was evaluated in the ED and had unremarkable left knee and left tib/ fib x-rays. The pain and edema in her left leg worsened so she was evaluated in the ED again 3 days ago. During that visit she had an unremarkable left knee CT. The patient has a follow-up with orthopedics on Thursday. She states that she started to experience right leg edema last night and it was worse this morning so she felt that she needed to be evaluated again. The patient denies any other pain. She states that she experienced shortness of breath with exertion this morning around [id number] and when she ambulated from triage to her room. The patient states that this is abnormal for her and that she typically is able to walk 3 [address] to the [employer] without any difficulties. She denies chest pain, nausea, vomiting, diarrhea, and pain or burning with urination. The patient has not noticed any significant weight gain over the last couple days, but the patient states that she has not weighed herself for the last 2 weeks. The patient states that she is on disability secondary to her 13 previous abdominal surgeries. The patient states that she does not typically lie flat when she sleeps because of her previous surgeries. She states that she has not had to increase her elevation any further while sleeping. The patient is not on any blood thinners. Source of History: patient Onset: 5 days ago Position: leg (bilateral) Quality: other (bilateral lower extremity edema) Timing: worsening Associated Symptoms: + SOB (with exertion), No LOC, No chest pain, No nausea , No vomiting, No diarrhea, No urinary symptoms (no pain or burning with urination) Note: no hand pain, bilateral lower extremity pain Review of Systems See HPI for pertinent positives & negatives. A total of 10 systems reviewed and were otherwise negative. Past Medical & Surgical Medical Problems: (1) Diverticulosis (2) No significant past medical history Surgical Problems: (1) History of abdominal wall herniorrhaphy (2) History of abdominal wall reconstruction (3) History of cholecystectomy (4) History of gastric bypass (5) History of gastric bypass Family History No significant family history Social History Smoking Status: Current Every Day Smoker Alcohol Use: none Marital Status: Occupation Status: unemployed Current/Historical Medications Scheduled Aripiprazole (Abilify), 5 MG PO DAILY Gabapentin (Gabapentin), 1,200 MG PO TID Ibuprofen (Advil), 400 MG PO DAILY Oxycodone Hcl (Oxycodone Hcl), 20 MG PO TID Venlafaxine Hcl (Effexor), 75 MG PO DAILY Venlafaxine Hcl (Effexor Extended Rel), 150 MG PO DAILY Scheduled PRN Oxycodone Immediate Rel Tab (Roxicodone Ir), 1-2 TAB PO Q4H PRN for Severe Pain Allergies Coded Allergies: Morphine (Unverified Allergy, Unknown, VOMITING, 11/03/16) Physical Exam Vital Signs Date Time Temp Pulse Resp B/P (MAP) Pulse Ox O2 Delivery O2 Flow Rate FiO2 11/03/16 14:34 80 18 143/85 11/03/16 13:29 85 11/03/16 13:26 89 16 142/91 100 11/03/16 11:28 96 Room Air 11/03/16 10:52 36.4 88 18 152/92 98 Room Air Physical Exam GENERAL: alert, sitting up in bed, disheveled, well appearing, well nourished, no acute distress, non-toxic EYE EXAM: normal conjunctiva, PERRL and EOM's grossly intact OROPHARYNX: no exudate, no erythema, lips, buccal mucosa, and tongue normal and mucous membranes are moist NECK: supple, no JVD, no nuchal rigidity, no adenopathy, non-tender LUNGS: Clear to auscultation. Normal chest wall mechanics HEART: no murmurs, S1 normal and S2 normal ABDOMEN: abdomen soft, non-tender, normo-active bowel sounds, no masses, no rebound or guarding. BACK: Back is symmetrical on inspection and there is no deformity, no midline tenderness, no CVA tenderness. SKIN: no rashes and no bruising UPPER EXTREMITIES: upper extremities are grossly normal. LOWER EXTREMITIES: Diffuse edema bilaterally left greater than right slightly pitting with bruising on right and left medial thighs and shins, abrasion over left vale, DPs 2/4 bilaterally, gross sensation intact, full active and passive range of motion of hip, knee, and ankle bilaterally. NEURO EXAM: Normal sensorium, cranial nerves II-XII grossly intact, normal speech, no gross weakness of arms Medical Decision & Procedures ER Provider Diagnostic Interpretation: Radiology results as stated below per my review and the radiologist's interpretation: CHEST ONE VIEW PORTABLE FINDINGS: The bones soft tissues and hemidiaphragms are normal. The cardiomediastinal silhouette is normal. The lungs are clear. The pulmonary vasculature is normal. IMPRESSION: Negative chest. Electronically signed by: Bernard Roth M.D. 11/03/2016 11:32 AM Dictated Date/Time: 11/03/2016 11:32 AM LEFT FEMUR 2 VIEWS ROUTINE DISCUSSION: The bones and joint spaces appear intact. There is no evidence of fracture, dislocation or bony disease. There is no evidence for soft tissue swelling. Moderate degenerative change left hip and left knee. IMPRESSION: Negative study. Moderate degenerative changes left hip and left knee. No acute process. Electronically signed by: Bernard Roth M.D. 11/03/2016 12:54 PM Dictated Date/Time: 11/03/2016 12:53 PM CHEST CTA for PULMONARY ARTERIES FINDINGS: There is a normal caliber thoracic aorta with no evidence for dissection. There is no evidence for pulmonary embolus. No pleural effusions. No pneumothorax. The liver and spleen are unremarkable. No mediastinal or hilar lymphadenopathy. The central airways are patent. The lungs are clear. IMPRESSION: No evidence for pulmonary embolus. The lungs are clear. Electronically signed by: Bernard Roth M.D. 11/03/2016 1:23 PM Dictated Date/Time: 11/03/2016 1:20 PM ULTRASOUND BILATERAL LOWER EXTREMITY VENOUS FINDINGS: There is no sonographic evidence of deep venous thrombosis identified in the right or left lower extremity. The common femoral, superficial femoral, and popliteal veins are patent and normally compressible bilaterally. The greater saphenous vein and the profunda femoris vein at the junction with the common femoral vein are clear in both legs. The visualized calf veins are patent bilaterally. Subcutaneous fluid is noted within the popliteal fossa on the left. IMPRESSION: There is no sonographic evidence of deep venous thrombosis identified in the right or left lower extremity. Electronically signed by: Maximo Montesinos M.D. 11/03/2016 12:17 PM Dictated Date/Time: 11/03/2016 12:16 PM Laboratory Results 11/03/16 11:33 Red Blood Count 4.06, Mean Corpuscular Volume 90.1, Mean Corpuscular Hemoglobin 29.1, Mean Corpuscular Hemoglobin Concent 32.2, Mean Platelet Volume 11.9, Neutrophils (%) (Auto) 64.0, Lymphocytes (%) (Auto) 29.9, Monocytes (%) (Auto) 5.9, Eosinophils (%) (Auto) 0.0, Basophils (%) (Auto) 0.0, Neutrophils # (Auto) 3.27, Lymphocytes # (Auto) 1.53, Monocytes # (Auto) 0.30, Eosinophils # (Auto) 0.00, Basophils # (Auto) 0.00 11/03/16 11:33 Test 11/03/16 11:33 11/03/16 14:05 White Blood Count 5.11 K/uL (4.8-10.8) Red Blood Count 4.06 M/uL (4.2-5.4) Hemoglobin 11.8 g/dL (12.0-16.0) Hematocrit 36.6 % (37-47) Mean Corpuscular Volume 90.1 fL (80-100) Mean Corpuscular Hemoglobin 29.1 pg (25-34) Mean Corpuscular Hemoglobin Concent 32.2 g/dl (32-36) Platelet Count 179 K/uL (130-400) Mean Platelet Volume 11.9 fL (7.4-10.4) Neutrophils (%) (Auto) 64.0 % Lymphocytes (%) (Auto) 29.9 % Monocytes (%) (Auto) 5.9 % Eosinophils (%) (Auto) 0.0 % Basophils (%) (Auto) 0.0 % Neutrophils # (Auto) 3.27 K/uL (1.4-6.5) Lymphocytes # (Auto) 1.53 K/uL (1.2-3.4) Monocytes # (Auto) 0.30 K/uL (0.11-0.59) Eosinophils # (Auto) 0.00 K/uL (0-0.5) Basophils # (Auto) 0.00 K/uL (0-0.2) RDW Standard Deviation 50.2 fL (36.4-46.3) RDW Coefficient of Variation 15.3 % (11.5-14.5) Immature Granulocyte % (Auto) 0.2 % Immature Granulocyte # (Auto) 0.01 K/uL (0.00-0.02) Prothrombin Time 9.4 SECONDS (9.0-12.0) Prothromb Time International Ratio 0.9 (0.9-1.1) Activated Partial Thromboplast Time 28.1 SECONDS (21.0-31.0) Partial Thromboplastin Ratio 1.1 D-Dimer 1330 ug/L FEU (0-500) Urine Color YELLOW Urine Appearance CLEAR (CLEAR) Urine pH 8.0 (4.5-7.5) Urine Specific [place] 1.008 (1.000-1.030) Urine Protein NEG (NEG) Urine Glucose (UA) NEG (NEG) Urine Ketones NEG (NEG) Urine Occult Blood NEG (NEG) Urine Nitrite NEG (NEG) Urine Bilirubin NEG (NEG) Urine Urobilinogen NEG (NEG) Urine Leukocyte Esterase SMALL (NEG) Urine WBC (Auto) 5-10 /hpf (0-5) Urine RBC (Auto) 0-4 /hpf (0-4) Urine Hyaline Casts (Auto) 1-5 /lpf (0-5) Urine Epithelial Cells (Auto) >30 /lpf (0-5) Urine Bacteria (Auto) 2+ (NEG) Anion Gap 3.0 mmol/L (3-11) Est Creatinine Clear Calc Drug Dose 128.1 ml/min Estimated GFR () 107.0 Estimated GFR (Non- 92.3 BUN/Creatinine Ratio 13.7 (10-20) Calcium Level 8.5 mg/dl (8.5-10.1) Total Bilirubin 0.3 mg/dl (0.2-1) Aspartate Amino Transf (AST/SGOT) 13 U/L (15-37) Alanine Aminotransferase (ALT/SGPT) 25 U/L (12-78) Alkaline Phosphatase 126 U/L (45-117) Pro-B-Type Natriuretic Peptide 368 pg/ml (0-900) Total Protein 6.5 gm/dl (6.4-8.2) Albumin 3.2 gm/dl (3.4-5.0) Globulin 3.3 gm/dl (2.5-4.0) Albumin/Globulin Ratio 1.0 (0.9-2) Troponin I < 0.015 ng/ml (0-0.045) Laboratory results per my review. Medications Administered Medications (Trade) Dose Ordered Sig/Tayo Route Start Time Stop Time Status Last Admin Dose Admin Acetaminophen (Tylenol Tab) 1,000 mg NOW STAT PO 11/03/16 13:29 11/03/16 13:31 DC 11/03/16 13:44 1,000 MG ECG Indication: SOB/dyspnea Rate (beats per minute): 80 Rhythm: sinus rhythm Findings: no ectopy, other (normal axis) ED Course ED COURSE: Vital signs were reviewed and showed hypertension. The patients medical record was reviewed The above diagnostic studies were performed and reviewed. ED treatments and interventions as stated above. 1110: The patient was evaluated in room C4. A complete history and physical examination was performed. 1329: Ordered Tylenol Tab 1000 mg PO 1334: I reassessed the patient. I let her know that we are going to repeat a troponin. 1446: Upon reevaluation, the patient is doing well.I discussed my findings with the patient and she understands and agrees with the treatment plan. Based on the patients age, coexisting illnesses, exam and lab findings the decision to treat as an outpatient was made. The patient remained stable while under my care. The patient appeared well at the time of discharge. Medical Decision Differential diagnoses includes but is not limited to fracture, dislocation, neurovascular compromise, compartment syndrome, soft tissue injury. Medication Reconciliation: I attest that I have personally reviewed the patient' s current medication list. Blood pressure screening: Patient was found to have an elevated blood pressure and was referred to their primary doctor for recheck and further treatment. Patient is a 51-year-old female who presents the ER for her third visit following a fall over a week ago. She is complaining of worsening swelling in her legs and mild shortness of breath which started this morning at 7 AM but resolved. Labs show diffuse bruising bilaterally. CBC was unremarkable. BMP along with LFTs, bilirubin and troponin was negative 2. D-dimer was elevated and CT PE was performed and was negative. EKG was unremarkable. UA was contaminated with multiple epithelial cells. She has no urinary symptoms. Will not treat. Duplex of the lower extremities were negative. Based on her history of believe this is likely secondary to the contusions. X-ray of left femur was negative. Exam does not support CHF. No PEs. No pulmonary edema on CT. Patient was given Tylenol and discharged follow with her PCP. Discussed with Pt concerning signs and symptoms to watch out for. Pt was instructed to follow up with their PCP and discussed with the patient their option to return to the ED at anytime for persistent or worsening symptoms. The appropriate anticipatory guidance and out-patient management, including indications for return to the emergency department, were explained at length to the patient and understood. Impression Primary Impression: Multiple leg contusions Additional Impressions: Lower extremity edema Shortness of breath Scribe Attestation The scribe's documentation has been prepared under my direction and personally reviewed by me in its entirety. I confirm that the note above accurately reflects all work, treatment, procedures, and medical decision making performed by me. Departure Information Dispostion Home / Self-Care Referrals No Doctor, Assigned (PCP) Forms HOME CARE DOCUMENTATION FORM, IMPORTANT VISIT INFORMATION, WORK / SCHOOL INSTRUCTIONS Patient Instructions ED Contusion Soft Tissue, [facility] Additional Instructions Please follow up with your primary care doctor with in the next 24 hours. Any worsening of your symptoms, please return to the ED immediately. This includes chest pain, shortness breath, passing out, or any other concerning signs or symptoms from your standpoint. Problem Qualifiers Primary Impression: Multiple leg contusions Encounter type: initial encounter Laterality: unspecified laterality Qualified Codes: S80.10XA - Contusion of unspecified lower leg, initial encounter
[2016-12-01] MEDS ORDERED: OXYC20TA32 PO (12:17)
[2016-12-01] MEDS ORDERED: NRN600 PO (12:17)
[2016-12-01] MEDS ORDERED: ABL/5 PO (13:21)
[2016-12-01] MEDS ORDERED: VENL150C56 PO (13:22)
[2016-12-01] MEDS ORDERED: EFF75 PO (13:22)
== END 2016-11-03 14:59 | disposition home or self-care (01) ==
LOC: C.EDB 10:52 → C.EDC 14:59
DX: S80.11XA Contusion of right lower leg, initial encounter (principal); S80.12XA Contusion of left lower leg, initial encounter; R60.0 Localized edema; R06.02 Shortness of breath; W01.198A Fall on same level from slipping, tripping and stumbling with subsequent striking against other object, initial encounter; F17.200 Nicotine dependence, unspecified, uncomplicated; Z98.890 Other specified postprocedural states; Z90.49 Acquired absence of other specified parts of digestive tract; Z98.84 Bariatric surgery status

== ENCOUNTER 2016-12-01 15:13 | Emergency (ER) | payer OTHER ==
[~2016-12-01 15:13] MED LIST changes: +ABL/5 PO; +EFF75 PO; +IBUP-1050 PO; +NRN600 PO; +OXYC20TA32 PO; +VENL150C56 PO
[2016-12-01 15:17] VITALS: TEMP 36.6; Ht 165.1 cm
[2016-12-01] MEDS ORDERED: LORAZEPAM 1 MG TAB SL STA (15:35)
--- NOTE | 2016-12-01 16:12 | EMERGENCY ROOM VISIT NOTE ---
History Report prepared by Alissa: Alma Rosa Garay Under the Supervision of: Dr. Shelby Sheldon M.D. First contact with patient: 15:25 Chief Complaint: LEG PAIN,LEG INJURY Stated Complaint: LEG SWELLING,STOMACH PAIN,SOB History of Present Illness The patient is a 51 year old female who presents to the Emergency Room with complaints of constant bilateral leg pain beginning 1 month ago. The patient states that her legs are swollen from her feet up to her thighs and are causing her severe pain. She reports that she was seen here 1 month ago and after seeing her PCP 3 weeks ago she was put on Lasix. The patient states that she has not had relief of her symptoms with the Lasix and is concerned that the swelling is not going down. She notes that she has had shortness of breath that is worse with exertion. The patient complains of pain with bending her knee, foot pain and swelling, and general body swelling. She denies any vomiting, nausea, jaw pain, new back pain, and arm pain. The patient states that she has been smoking for 30 years and smokes 1 pack a day. She reports that she has a history of anxiety, depression, bipolar disorder, fibromyalgia, arthritis, and 13 abdominal surgeries for which she takes oxycodone. Source of History: patient Onset: 1 month ago Position: leg (bilateral) Quality: other (swelling) Timing: constant Modifying Factors (Worsening): exertion Associated Symptoms: + chest pain, + SOB, No neck pain, No vomiting, No abdominal pain, No back pain Note: Pt complains of body swelling, foot pain and foot swelling. She denies any jaw pain or arm pain and new back pain. Review of Systems See HPI for pertinent positives & negatives. A total of 10 systems reviewed and were otherwise negative. Past Medical & Surgical Medical Problems: (1) Diverticulosis (2) No significant past medical history Surgical Problems: (1) History of abdominal wall herniorrhaphy (2) History of abdominal wall reconstruction (3) History of cholecystectomy (4) History of gastric bypass (5) History of gastric bypass Family History No significant family history Social History Smoking Status: Current Every Day Smoker Alcohol Use: none Marital Status: Occupation Status: unemployed Current/Historical Medications Scheduled Aripiprazole (Abilify), 5 MG PO DAILY Cephalexin Monohydrate (Keflex), 500 MG PO Q8 Gabapentin (Gabapentin), 1,200 MG PO TID Oxycodone Hcl (Oxycodone Hcl), 20 MG PO TID Venlafaxine Hcl (Effexor), 75 MG PO DAILY Venlafaxine Hcl (Effexor Extended Rel), 150 MG PO DAILY Scheduled PRN Ibuprofen (Advil), 400 MG PO DAILY PRN for Pain Allergies Coded Allergies: Morphine (Unverified Allergy, Unknown, VOMITING, 11/03/16) Physical Exam Vital Signs Date Time Temp Pulse Resp B/P (MAP) Pulse Ox O2 Delivery O2 Flow Rate FiO2 12/01/16 19:07 86 20 125/78 96 Room Air 12/01/16 17:21 86 18 154/97 99 Room Air 12/01/16 15:17 36.6 92 20 122/81 95 Room Air Physical Exam Vital signs reviewed. General: Well-appearing female, obese, smells of tobacco. HEENT: No scleral icterus, PERRLA, neck supple. Atraumatic. Edentulous. No JVD. Cardiovascular: Regular rate and rhythm, no extra sounds. Pulmonary: Clear to auscultation bilaterally, normal work of breathing. Abdomen: Obese, soft, nontender, nondistended, positive bowel sounds. Musculoskeletal: Non-pitting edema to bilateral lower extremities with mild erythema distally, no clear cellulitis. Neurologic: Patient awake alert and oriented x 3 Skin: Warm, dry, no rash Medical Decision & Procedures ER Provider Diagnostic Interpretation: X-ray results as stated below per interpretation by me and the radiologist: CHEST 2 VIEWS ROUTINE CLINICAL HISTORY: Shortness of breath. Lower extremity edema. COMPARISON STUDY: Chest radiograph and chest CT November 03, 2016. FINDINGS: Lung volumes are normal. There is no consolidation to suggest pneumonia. No pneumothorax or pleural effusion is present. Cardiomediastinal silhouette is normal. Pulmonary vascularity is normal. IMPRESSION: No acute cardiopulmonary findings. Electronically signed by: Babatunde Dumont M.D. 12/01/2016 4:46 PM Dictated Date/Time: 12/01/2016 4:46 PM ULTRASOUND BILATERAL LOWER EXTREMITY VENOUS FINDINGS: There is no sonographic evidence of deep venous thrombosis identified in the right or left lower extremity. The common femoral, superficial femoral, and popliteal veins are patent and normally compressible bilaterally. The greater saphenous vein and the profunda femoris vein at the junction with the common femoral vein are clear in both legs. The visualized calf veins are patent bilaterally. IMPRESSION: There is no sonographic evidence of deep venous thrombosis identified in the right or left lower extremity. Electronically signed by: Maximo Montesinos M.D. 12/01/2016 6:19 PM Dictated Date/Time: 12/01/2016 6:19 PM Laboratory Results 12/01/16 16:05 Red Blood Count 4.13, Mean Corpuscular Volume 87.7, Mean Corpuscular Hemoglobin 28.3, Mean Corpuscular Hemoglobin Concent 32.3, Mean Platelet Volume 11.5, Neutrophils (%) (Auto) 57.5, Lymphocytes (%) (Auto) 36.1, Monocytes (%) (Auto) 6.2, Eosinophils (%) (Auto) 0.0, Basophils (%) (Auto) 0.0, Neutrophils # (Auto) 3.16, Lymphocytes # (Auto) 1.98, Monocytes # (Auto) 0.34, Eosinophils # (Auto) 0.00, Basophils # (Auto) 0.00 12/01/16 16:05 Test 12/01/16 16:05 12/01/16 16:12 12/01/16 17:24 White Blood Count 5.49 K/uL (4.8-10.8) Red Blood Count 4.13 M/uL (4.2-5.4) Hemoglobin 11.7 g/dL (12.0-16.0) Hematocrit 36.2 % (37-47) Mean Corpuscular Volume 87.7 fL (80-100) Mean Corpuscular Hemoglobin 28.3 pg (25-34) Mean Corpuscular Hemoglobin Concent 32.3 g/dl (32-36) Platelet Count 202 K/uL (130-400) Mean Platelet Volume 11.5 fL (7.4-10.4) Neutrophils (%) (Auto) 57.5 % Lymphocytes (%) (Auto) 36.1 % Monocytes (%) (Auto) 6.2 % Eosinophils (%) (Auto) 0.0 % Basophils (%) (Auto) 0.0 % Neutrophils # (Auto) 3.16 K/uL (1.4-6.5) Lymphocytes # (Auto) 1.98 K/uL (1.2-3.4) Monocytes # (Auto) 0.34 K/uL (0.11-0.59) Eosinophils # (Auto) 0.00 K/uL (0-0.5) Basophils # (Auto) 0.00 K/uL (0-0.2) RDW Standard Deviation 46.0 fL (36.4-46.3) RDW Coefficient of Variation 14.3 % (11.5-14.5) Immature Granulocyte % (Auto) 0.2 % Immature Granulocyte # (Auto) 0.01 K/uL (0.00-0.02) Anion Gap 5.0 mmol/L (3-11) Estimated GFR () 117.4 Estimated GFR (Non- 101.3 BUN/Creatinine Ratio 15.3 (10-20) Calcium Level 8.7 mg/dl (8.5-10.1) Magnesium Level 2.2 mg/dl (1.8-2.4) Total Bilirubin 0.2 mg/dl (0.2-1) Direct Bilirubin 0.1 mg/dl (0-0.2) Aspartate Amino Transf (AST/SGOT) 14 U/L (15-37) Alanine Aminotransferase (ALT/SGPT) 16 U/L (12-78) Alkaline Phosphatase 94 U/L (45-117) Total Creatine Kinase 41 U/L (26-192) Creatine Kinase MB 0.9 ng/ml (0.5-3.6) Creatine Kinase MB Ratio 2.2 (0-3.0) Total Protein 6.6 gm/dl (6.4-8.2) Albumin 3.0 gm/dl (3.4-5.0) Bedside Troponin I < 0.030 ng/ml (0-0.045) QP-Mzm-G-Type Natriuretic Peptide 448 pg/ml (0-900) Urine Color YELLOW Urine Appearance CLEAR (CLEAR) Urine pH 8.0 (4.5-7.5) Urine Specific [place] 1.020 (1.000-1.030) Urine Protein NEG (NEG) Urine Glucose (UA) NEG (NEG) Urine Ketones NEG (NEG) Urine Occult Blood NEG (NEG) Urine Nitrite NEG (NEG) Urine Bilirubin NEG (NEG) Urine Urobilinogen NEG (NEG) Urine Leukocyte Esterase NEG (NEG) Laboratory results per my review. Medications Administered Medications (Trade) Dose Ordered Sig/Tayo Route Start Time Stop Time Status Last Admin Dose Admin Lorazepam (Ativan Tab) 1 mg NOW STAT SL 12/01/16 15:35 12/01/16 15:39 DC 12/01/16 16:03 1 MG ECG Indication: SOB/dyspnea Rate (beats per minute): 83 Rhythm: normal sinus Findings: no acute ischemic change, no ectopy ED Course 152: Past medical records reviewed. The patient was evaluated in room C6. A complete history and physical examination was performed. 153: Ativan Tab 1mg SL. 1855: I reevaluated and updated the patient. 1902: Upon reevaluation, the patient appeared to have improvement of her symptoms. I discussed findings with the patient. She verbalized agreement of the treatment plan. The patient was discharged home. Medical Decision Differential diagnosis: Etiologies such as infections, reactive airway disease, pneumonia, pneumothorax , COPD, CHF, cardiac ischemia, pulmonary embolism, musculoskeletal, gastrointestinal, as well as others were entertained. This patient was evaluated and appeared to be in no significant distress. IV access was obtained and laboratory work was drawn. The patient was anxious and requested abdomen. She was given 1 mg by mouth. Chest x-ray reveals no focal lung abnormality, lower extremity Dopplers are negative for DVT. Laboratory work is unrevealing. EKG reveals a sinus rhythm without evidence of ectopy or ischemia. The patient states she has inhalers at home. She does smoke 1 pack per day. I suspect her lower extremities edema is due to her morbid obesity. Shortness of breath is likely secondary to smoking/COPD. Patient was encouraged to stop smoking. She was advised to maintain a low-sodium diet. She will continue her Lasix as prescribed and follow up with her PCP this week for reevaluation. Patient will return to the ER for worsening of symptoms or any medical concerns. Medication Reconcilliation Current Medication List: was personally reviewed by me Blood Pressure Screening Patient's blood pressure: Normal blood pressure Blood pressure disposition: Did not require urgent referral Impression Primary Impression: Lower extremity edema Additional Impressions: Exertional shortness of breath Tobacco use disorder Scribe Attestation The scribe's documentation has been prepared under my direction and personally reviewed by me in its entirety. I confirm that the note above accurately reflects all work, treatment, procedures, and medical decision making performed by me. Departure Information Dispostion Home / Self-Care Referrals Jose Jim M.D. (PCP) Forms HOME CARE DOCUMENTATION FORM, IMPORTANT VISIT INFORMATION Patient Instructions My [facility] [place] Additional Instructions Diagnosis: Lower extremity edema, shortness of breath with exertion, tobacco dependency Continue your inhalers as prescribed. Stop smoking. Continue Lasix as prescribed. Compression stockings while on your feet, they may be removed at night to sleep. Maintain a low-sodium diet, less than 2000 mg daily. Follow-up with her primary care physician this week for reevaluation return to the ER for worsening of symptoms or any medical concerns. Problem Qualifiers
[2016-12-01 16:20] LABS: COMPLETE YES; HEMATOCRIT 36.2 % (37-47); IG% 0.2 %; LYMPH % 36.1 %; LYMPH ABS # 1.98 K/uL (1.2-3.4); MEAN CELL VOLUME 87.7 fL (80-100); MEAN CORPUSCULAR HEMOGLOBIN 28.3 pg (25-34); MEAN CORPUSCULAR HGB CONC 32.3 g/dl (32-36); MEAN PLATELET VOLUME 11.5 fL (7.4-10.4); MONO % 6.2 %; NEUT % 57.5 %; PLATELET COUNT 202 K/uL (130-400); RED BLOOD COUNT 4.13 M/uL (4.2-5.4); WHITE BLOOD COUNT 5.49 K/uL (4.8-10.8)
[2016-12-01] MEDS ORDERED: CEPH500C2 PO (16:20)
[2016-12-01 16:30] LABS: POINT OF CARE PRO-BNP 448 pg/ml (0-900); POINT OF CARE TROPONIN I < 0.030 ng/ml (0-0.045)
[2016-12-01 16:38] LABS: ALT/SGPT 16 U/L (12-78); BLOOD UREA NITROGEN 10 mg/dl (7-18); BUN/CREATININE RATIO 15.3 (10-20); CALCIUM 8.7 mg/dl (8.5-10.1); CARBON DIOXIDE 30 mmol/L (21-32); CHLORIDE 109 mmol/L (98-107); CREATININE 0.68 mg/dl (0.60-1.20); GLUCOSE 63 mg/dl (70-99); MAGNESIUM 2.2 mg/dl (1.8-2.4); POTASSIUM 4.2 mmol/L (3.5-5.1); SODIUM 144 mmol/L (136-145)
[2016-12-01 16:46] LABS: ALKALINE PHOSPHATASE 94 U/L (45-117); AST/SGOT 14 U/L (15-37); CKMB/CK RATIO 2.2 (0-3.0)
--- NOTE | 2016-12-01 16:47 | DIAGNOSTIC IMAGING REPORT ---
CHEST 2 VIEWS ROUTINE CLINICAL HISTORY: Shortness of breath. Lower extremity edema. COMPARISON STUDY: Chest radiograph and chest CT November 03, 2016. FINDINGS: Lung volumes are normal. There is no consolidation to suggest pneumonia. No pneumothorax or pleural effusion is present. Cardiomediastinal silhouette is normal. Pulmonary vascularity is normal. IMPRESSION: No acute cardiopulmonary findings. Electronically signed by: Babatunde Dumont M.D. 12/01/2016 4:46 PM Dictated Date/Time: 12/01/2016 4:46 PM
[2016-12-01 17:35] LABS: URINE APPEARANCE CLEAR (CLEAR); URINE BILIRUBIN NEG (NEG); URINE COLOR YELLOW; URINE NITRITE NEG (NEG); UROBILINOGEN NEG (NEG); ZZUR CULT IF INDIC CLEAN CATCH NO
[2016-12-01 17:49] LABS: MANUAL MICROSCOPIC REQUIRED? NO; REVIEW REQ? NO
--- NOTE | 2016-12-01 18:21 | DIAGNOSTIC IMAGING REPORT ---
ULTRASOUND BILATERAL LOWER EXTREMITY VENOUS CLINICAL HISTORY: Leg pain and swelling. COMPARISON STUDY: Bilateral lower extremity venous ultrasound dated 11/03/2016. TECHNIQUE: Real-time, grayscale, and color Doppler sonography of the deep veins of the right and left lower extremity was performed from the inguinal crease to the calf. Compression and augmentation were utilized. FINDINGS: There is no sonographic evidence of deep venous thrombosis identified in the right or left lower extremity. The common femoral, superficial femoral, and popliteal veins are patent and normally compressible bilaterally. The greater saphenous vein and the profunda femoris vein at the junction with the common femoral vein are clear in both legs. The visualized calf veins are patent bilaterally. IMPRESSION: There is no sonographic evidence of deep venous thrombosis identified in the right or left lower extremity. Electronically signed by: Maximo Montesinos M.D. 12/01/2016 6:19 PM Dictated Date/Time: 12/01/2016 6:19 PM
[2016-12-01 19:07] VITALS: BP 125/78; PULSE 86; O2SAT 96
== END 2016-12-01 19:23 | disposition home or self-care (01) ==
LOC: C.EDB 15:16 → C.EDC 19:23
DX: R60.0 Localized edema (principal); R06.02 Shortness of breath; M79.604 Pain in right leg; M79.605 Pain in left leg; R07.9 Chest pain, unspecified; F41.9 Anxiety disorder, unspecified; F31.9 Bipolar disorder, unspecified; M79.7 Fibromyalgia; Z79.899 Other long term (current) drug therapy; Z87.19 Personal history of other diseases of the digestive system; F17.200 Nicotine dependence, unspecified, uncomplicated